=== PATIENT | male | born 1995 | race Caucasian/White ===

== ENCOUNTER 2024-09-13 01:23 | Emergency (ER) | payer MEDICAID ==
[~2024-09-13] VITALS: Ht 177.8 cm; Wt 87.1 kg
[2024-09-13 02:40] VITALS: BP 116/53; PULSE 89; RESP 17; TEMP 97.8; O2SAT 98
[2024-09-13] MEDS ORDERED: AUG875T PO (03:04)
== END 2024-09-13 03:04 | disposition home or self-care (01) ==
LOC: ER 01:23
DX: S41.112A Laceration without foreign body of left upper arm, initial encounter (principal); Z88.0 Allergy status to penicillin; W22.8XXA Striking against or struck by other objects, initial encounter; Y93.89 Activity, other specified; Y92.89 Other specified places as the place of occurrence of the external cause; Y99.8 Other external cause status
CPT/HCPCS: 12001; 73080

== ENCOUNTER 2024-12-26 11:25 | Emergency (ER) | payer MEDICAID ==
[~2024-12-26] VITALS: Ht 177.8 cm; Wt 83.3 kg
[~2024-12-26 11:25] MED LIST: AUG875T PO
[2024-12-26 11:58] VITALS: BP 143/102; PULSE 95; RESP 16; O2SAT 98
== END 2024-12-26 15:35 | disposition left against medical advice (07) ==
LOC: ER 11:25
DX: R51.9 Headache, unspecified (principal); R05.9 Cough, unspecified; Z53.21 Procedure and treatment not carried out due to patient leaving prior to being seen by health care provider